=== PATIENT | male | born 1935 | race Caucasian/White ===

== ENCOUNTER 2019-04-19 18:17 | Inpatient (IN) | payer MEDICARE ==
[~2019-04-19] VITALS: Ht 182.9 cm; Wt 93.5 kg
[2019-04-19] MEDS ORDERED: IV RINGERS SOLUTION,LACTATED 1,000 ML IV SCH (18:38)
--- NOTE | 2019-04-19 18:38 | PHYS DOC ---
Past History Past Medical History: Anxiety, Arthritis, Dementia Adult General Chief Complaint Chief Complaint: PSYCH EVALUATION " Wild drive ... over here.. it made me puke..." HPI HPI Patient is a 84 year old male who presents with hx mental status change and behavior issues. Marked changes in mental status the last two weeks. Accepted on [facility], but directed to ED for medical evaluation. Pt. transfer from [facility] - where he has been a resident since 09/05/18. Pt. hx of reporting thoughts of self harm. Pt. reportedly not coping well with placement in .. Pt. reportedly angry, fearful, paranoid, and has threaten other reside nts. Pt. hx of prior CVA and decreased physical ability resulting in his placement in [facility]. Pt. has past history Dementia, CVA., Depression, CHF, , pulmonary disease,, coronary artery disease, peripheral vascular disease, .dysphagia, encephalopathic and HTN. Pt has had, pacemaker and angioplasty in past. Pt did vomit in transport here to ED and was noted to have large bowel movement while in ED. Pt. normally follows with Dr. Snell. Review of Systems Review of Systems Pt. only complaints is nausea and vomiting. - But a poor historian. Constitutional: Denies fever or chills [] Eyes: Denies change in visual acuity, redness, or eye pain [] HENT: Denies nasal congestion or sore throat [] Respiratory: Denies cough or shortness of breath [] Cardiovascular: No additional information not addressed in HPI [] GI: Denies abdominal pain, n, bloody stools . Pt. has complaints of diarrhea []. Pt complaints nausea, vomiting : Denies dysuria or hematuria [] Musculoskeletal: Denies back pain or joint pain [] Integument: Denies rash or skin lesions [] Neurologic: Denies headache, focal weakness or sensory changes [] Endocrine: Denies polyuria or polydipsia [] All other systems were reviewed and found to be within normal limits, except as documented in this note. Family History Family History Not currently available Current Medications Current Medications See nursing for home meds Allergies Allergies No known drug allergies Physical Exam Physical Exam Constitutional: Mild distress, non-toxic appearance. [] HENT: Normocephalic, atraumatic, bilateral external ears normal, oropharynx moist, no oral exudates, nose normal. [] Eyes: PERRLA, EOMI, conjunctiva normal, no discharge. [] Neck: Normal range of motion, no tenderness, supple, no stridor. [] Cardiovascular:Heart rate regular rhythm, no murmur []PMI to the left Lungs & Thorax: Bilateral breath sounds equal apex with scattered wheezes auscultation []. Some left basilar crackles and rhonchi. Pacemaker Abdomen: Bowel sounds hyperactive, soft, no tenderness, no masses, no pulsatile masses. [] Non-circumcised. Foreskin will not retract. Skin: Warm, dry, no erythema, no rash. [] Poor turgor Back: No tenderness, no CVA tenderness. [] Extremities: No tenderness, no cyanosis, no clubbing, ROM intact, no edema. [] Arthritic changes Neurologic: Alert and oriented name and is aware that he is in a hospital,, moves extremities on request, has distal sensory, patient does appear to be confused at times. Does have a mild tremor. Psychologic: Affect anxious, judgement appears impaired, mood depressed EKG EKG My interpretation EKG shows a sinus rhythm at 67 bpm. There is considerable artifact due to a tremor. There is right ordered axis. No findings of acute STEMI of contralateral changes. No obvious patient spikes.[] Radiology/Procedures Radiology/Procedures [][place] [address] IMAGING REPORT Signed PATIENT: DANIELLE CAAL ACCOUNT: [id number] : 1935 LOCATION: ER AGE: 84 SEX: M EXAM STATUS: REG ER ORD. PHYSICIAN: MELBA ALMODOVAR MD REASON: confused PROCEDURE: PORTABLE CHEST 1V CT head without contrast: Reason for examination: Mental status changes and neck pain. Axial images were obtained through the brain. No contrast was administered. Ventricular systems show some asymmetry with the right being larger than the left. This is probably due to compensatory enlargement from encephalomalacia from a previous right frontal lobe infarct at the convexly. No midline shift is seen. There is no evidence of intracranial hemorrhage. There is a chronic lacunar infarct in the right basal ganglia anteriorly. There are basal ganglia calcifications on the right. No masses or edema are evident. No abnormalities of seen at the orbits. The paranasal sinuses and mastoid air cells are clear. No acute abnormality seen in the skull. IMPRESSION: Chronic infarct with encephalomalacia in the right frontal lobe at the convexly with some compensatory enlargement of the right lateral ventricle. Chronic lacunar infarcts in the right basal ganglia region. No intraparenchymal hemorrhage or acute infarct or edema. CT cervical spine without contrast: Helical images were obtained through the cervical spine from skull base through the thoracic apices with no contrast administered. Reconstruction was performed in sagittal and coronal planes. The C1 ring is intact. The odontoid process appears to be intact and normally centered between the lateral masses of C1. The vertebral bodies of the cervical spine are normally aligned anteriorly and posteriorly. No acute fracture or subluxation is seen. There are some hypertrophic changes with a bridging osteophyte anteriorly at the C7-T1 level. There is also osteophyte formation posteriorly at the C5-6 level with mild loss of disc height but there does not appear to be a significant spinal stenosis. No other significant loss of disc height is seen. Prevertebral soft tissues are normal. IMPRESSION: Degenerative spondylosis but no acute abnormalities evident in the cervical spine. Exposure: One or more of the following individualized dose reduction techniques were utilized for this examination: 1. Automated exposure control 2. Adjustment of the mA and/or kV according to patient size 3. Use of iterative reconstruction technique. Chest AP portable at 1924: Postop changes are seen in the sternum and mediastinum. Heart size appears to be enlarged. Mediastinum is otherwise unremarkable considering lordotic projection. Lung matos show some hazy density at the left lung base which suggests some atelectasis or infiltrates. Right lung field is clear. No acute bony abnormalities are seen. IMPRESSION: Hazy density at the left lung base which may reflect atelectasis or infiltrates. Electronically signed by: Sahara Andrew MD (04/19/2019 8:22 PM) [id number] DICTATED AND SIGNED BY: SAHARA ANDREW MD DATE: 04/19/192021 CC: MELBA ALMODOVAR MD; JENNIFER SNELL MD ~ Course & Med Decision Making Course & Med Decision Making Pertinent Labs and Imaging studies reviewed. (See chart for details) Admit to Dr. Chase with consult to Dr. Venegas- medical issues. Note unable to obtain urine while in the emergency department. We will cover with antibiotics because of left lower possible infiltrate and mild leukocytosis. Impression: 1. Hx. Mental Status Change 2. Dementia 3. Nausea and vomiting 4. Behavior Disorder- requiring increased re-direction, Angry 5. Diarrhea 6. Left lower lobe infiltrate 7. Mild leukocytosis 12.7 8. Anxiety 9. Depression- Hx. threats of self harm 10.Paranoid Behaviors. 11.Mild Elevation Sed. 22 [] Dragon Disclaimer Dragon Disclaimer This electronic medical record was generated, in whole or in part, using a voice recognition dictation system. Departure Departure: Disposition: HOME/RESIDENCE PRIOR TO ADM Condition: STABLE Referrals: JENNIFER SNELL MD (PCP) Leonardo Disclaimer This chart was dictated in whole or in part using Voice Recognition software in a busy, high-work load, and often noisy Emergency Department environment. It may contain unintended and wholly unrecognized errors or omissions. Dragon Disclaimer This chart was dictated in whole or in part using Voice Recognition software in a busy, high-work load, and often noisy Emergency Department environment. It may contain unintended and wholly unrecognized errors or omissions. Dragon Disclaimer This chart was dictated in whole or in part using Voice Recognition software in a busy, high-work load, and often noisy Emergency Department environment. It may contain unintended and wholly unrecognized errors or omissions. MELBA ALMODOVAR MD Apr 19, 2019 18:38
--- NOTE | 2019-04-19 20:25 | RAD ---
CT head without contrast: Reason for examination: Mental status changes and neck pain. Axial images were obtained through the brain. No contrast was administered. Ventricular systems show some asymmetry with the right being larger than the left. This is probably due to compensatory enlargement from encephalomalacia from a previous right frontal lobe infarct at the convexly. No midline shift is seen. There is no evidence of intracranial hemorrhage. There is a chronic lacunar infarct in the right basal ganglia anteriorly. There are basal ganglia calcifications on the right. No masses or edema are evident. No abnormalities of seen at the orbits. The paranasal sinuses and mastoid air cells are clear. No acute abnormality seen in the skull. IMPRESSION: Chronic infarct with encephalomalacia in the right frontal lobe at the convexly with some compensatory enlargement of the right lateral ventricle. Chronic lacunar infarcts in the right basal ganglia region. No intraparenchymal hemorrhage or acute infarct or edema. CT cervical spine without contrast: Helical images were obtained through the cervical spine from skull base through the thoracic apices with no contrast administered. Reconstruction was performed in sagittal and coronal planes. The C1 ring is intact. The odontoid process appears to be intact and normally centered between the lateral masses of C1. The vertebral bodies of the cervical spine are normally aligned anteriorly and posteriorly. No acute fracture or subluxation is seen. There are some hypertrophic changes with a bridging osteophyte anteriorly at the C7-T1 level. There is also osteophyte formation posteriorly at the C5-6 level with mild loss of disc height but there does not appear to be a significant spinal stenosis. No other significant loss of disc height is seen. Prevertebral soft tissues are normal. IMPRESSION: Degenerative spondylosis but no acute abnormalities evident in the cervical spine. Exposure: One or more of the following individualized dose reduction techniques were utilized for this examination: 1. Automated exposure control 2. Adjustment of the mA and/or kV according to patient size 3. Use of iterative reconstruction technique. Chest AP portable at 1924: Postop changes are seen in the sternum and mediastinum. Heart size appears to be enlarged. Mediastinum is otherwise unremarkable considering lordotic projection. Lung matos show some hazy density at the left lung base which suggests some atelectasis or infiltrates. Right lung field is clear. No acute bony abnormalities are seen. IMPRESSION: Hazy density at the left lung base which may reflect atelectasis or infiltrates. Electronically signed by: Alana Lutz MD (04/19/2019 8:22 PM) [facility]
[2019-04-19] MEDS ORDERED: LIDOCAINE 2% TOPICAL JELLY 5GM TUBE. TP ONE ×2 (20:27→22:00)
[2019-04-19] MEDS ORDERED: TAMS0.4C97 PO (20:44)
[2019-04-19] MEDS ORDERED: MULT-114 PO (20:44)
[2019-04-19] MEDS ORDERED: ACET325T21 PO (20:44)
[2019-04-19] MEDS ORDERED: MAGN2400 PO (20:44)
[2019-04-19] MEDS ORDERED: TRIA15CR3 TP (20:44)
[2019-04-19] MEDS ORDERED: SERT50TA PO (20:44)
[2019-04-19] MEDS ORDERED: GUAI100L34 PO (20:44)
[2019-04-19] MEDS ORDERED: MAGN296S68 PO (20:44)
[2019-04-19] MEDS ORDERED: LOPE2TAB27 PO (20:44)
[2019-04-19] MEDS ORDERED: PSYL0.5215 PO (20:44)
[2019-04-19] MEDS ORDERED: SIME125C65 PO (20:44)
[2019-04-19] MEDS ORDERED: ATOR40TA59 PO (20:44)
[2019-04-19] MEDS ORDERED: BACL10TA PO (20:44)
[2019-04-19] MEDS ORDERED: ASPI-612 PO (20:44)
[2019-04-19] MEDS ORDERED: METRONIDAZOLE TOP (20:44)
[2019-04-19] MEDS ORDERED: FINA5TAB4 PO (20:44)
[2019-04-19] MEDS ORDERED: BISA10SU4 RC (20:44)
[2019-04-19] MEDS ORDERED: ONDANSETRON PF 4 MG/2 ML VIAL. IVP ONE (21:00)
[2019-04-19 21:09] LABS: CALCIUM 8.8 mg/dL (8.5-10.1); CREATININE 0.8 mg/dL (0.7-1.3); GFR 92.3
[2019-04-19 21:25] LABS: ALBUMIN 3.6 g/dL (3.4-5.0); DIRECT BILIRUBIN 0.1 mg/dL (0.0-0.2); MAGNESIUM 2.2 mg/dL (1.8-2.4); TOTAL BILIRUBIN 0.3 mg/dL (0.2-1.0); TOTAL PROTEIN 7.7 g/dL (6.4-8.2)
[2019-04-19 21:29] LABS: POTASSIUM 3.7 mmol/L (3.5-5.1)
[2019-04-19] MEDS ORDERED: ACETAMINOPHEN 325 MG TABLET PO PRN (21:45)
[2019-04-19] MEDS ORDERED: ONDANSETRON ODT 4 MG TAB.RAPDIS PO PRN (21:45)
[2019-04-19 21:56] LABS: BASO % 0 % (0-3); EOS # 0.1 x10^3/uL (0.0-0.7); EOS % 1 % (0-3); HEMATOCRIT 40.5 % (39.0-53.0); HEMOGLOBIN 13.2 g/dL (13.0-17.5); LYMPH # 0.9 x10^3/uL (1.0-4.8); LYMPH % 7 % (24-48); MEAN CORPUSCULAR HEMOGLOBIN 30 pg (25-35); MEAN CORPUSCULAR HGB CONC 33 g/dL (31-37); MEAN CORPUSCULAR VOLUME 91 fL (79-100); MONO # 0.5 x10^3/uL (0.0-1.1); MONO % 4 % (0-9); NEUT # 11.2 x10^3uL (1.8-7.7); NEUT % 89 % (31-73); PLATELET COUNT 259 x10^3/uL (140-400); RED BLOOD COUNT 4.45 x10^6/uL (4.30-5.70); RED CELL DISTRIBUTION WIDTH 15.9 % (11.5-14.5); WHITE BLOOD COUNT 12.7 x10^3/uL (4.0-11.0)
[2019-04-19 22:14] LABS: SEDIMENTATION RATE 22 (0-15)
[2019-04-20] MEDS ORDERED: METHYL SALICYLATE/MENTHOL TOPICAL OINTMENT 57GM TUBE. TP PRN (00:30)
[2019-04-20] MEDS ORDERED: MAGNESIUM HYDROXIDE 2,400 MG/30 ML ORAL.SUSP. PO PRN (00:30)
[2019-04-20] MEDS ORDERED: MAG HYDROX/AL HYDROX/SIMETH 30 ML ORAL.SUSP PO PRN (00:30)
[2019-04-20] MEDS ORDERED: ACETAMINOPHEN 325 MG TABLET PO PRN ×2 (00:30→00:45)
[2019-04-20] MEDS ORDERED: BISACODYL 10 MG SUPP.RECT RC PRN (00:45)
[2019-04-20] MEDS ORDERED: guaiFENesin 300 MG/15 ML LIQUID PO PRN (00:45)
[2019-04-20] MEDS ORDERED: TRIAMCINOLONE ACETONIDE 0.1% TOPICAL CREAM 15GM TUBE. TP PRN ×2 (00:45→17:30)
[2019-04-20] MEDS ORDERED: MAGNESIUM CITRATE 296 ML SOLUTION. PO PRN (00:45)
[2019-04-20] MEDS ORDERED: NON FORMULARY ITEM (Magnesium Hydroxide (Milk Of Magnesia) 2,400 MG) PO PRN (00:45)
[2019-04-20] MEDS ORDERED: LOPERAMIDE 2 MG CAPSULE PO PRN (00:45)
[2019-04-20] MEDS ORDERED: SIMETHICONE 80 MG TAB.CHEW PO PRN (00:45)
--- NOTE | 2019-04-20 01:13 | EKG ---
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
[2019-04-20 01:16] VITALS: BP 142/75
[2019-04-20] MEDS ORDERED: cefTRIAXone IM 1 GM VIAL IM ONE (04:00)
[2019-04-20 04:49] VITALS: BP 119/63
[2019-04-20] MEDS: IPRATRPIUM/ALBUTEROL 0.5/2.5MG 3 ML NEBU. NEB SCH ×3 (04:50→20:42)
[2019-04-20] MEDS ORDERED: metroNIDAZOLE 0.75% TOPICAL 1 APP TUBE TP PRN (07:30)
[2019-04-20 08:38] LABS: BASO % 0 % (0-3); EOS # 0.1 x10^3/uL (0.0-0.7); EOS % 2 % (0-3); HEMATOCRIT 37.6 % (39.0-53.0); HEMOGLOBIN 12.6 g/dL (13.0-17.5); LYMPH # 1.5 x10^3/uL (1.0-4.8); LYMPH % 18 % (24-48); MEAN CORPUSCULAR HEMOGLOBIN 30 pg (25-35); MEAN CORPUSCULAR HGB CONC 33 g/dL (31-37); MEAN CORPUSCULAR VOLUME 90 fL (79-100); MONO # 0.4 x10^3/uL (0.0-1.1); MONO % 5 % (0-9); NEUT # 6.4 x10^3uL (1.8-7.7); NEUT % 75 % (31-73); PLATELET COUNT 252 x10^3/uL (140-400); RED BLOOD COUNT 4.17 x10^6/uL (4.30-5.70); RED CELL DISTRIBUTION WIDTH 15.9 % (11.5-14.5); WHITE BLOOD COUNT 8.4 x10^3/uL (4.0-11.0)
[2019-04-20 08:48] LABS: ALBUMIN 3.3 g/dL (3.4-5.0); ALBUMIN/GLOBULIN RATIO 0.9 (1.0-1.7); CALCIUM 8.6 mg/dL (8.5-10.1); CREATININE 0.7 mg/dL (0.7-1.3); GFR 107.7; MAGNESIUM 2.3 mg/dL (1.8-2.4); POTASSIUM 3.4 mmol/L (3.5-5.1); TOTAL BILIRUBIN 0.5 mg/dL (0.2-1.0); TOTAL PROTEIN 6.9 g/dL (6.4-8.2)
[2019-04-20] MEDS: LACTOBACILLUS RHAMNOSUS GG 1 CAPSULE. PO SCH ×2 (08:59→20:12)
[2019-04-20] MEDS: CEPHALEXIN 250 MG CAPSULE PO SCH ×3 (09:00→20:12)
[2019-04-20] MEDS: TAMSULOSIN 0.4 MG CAP.ER.24H. PO SCH (09:00)
[2019-04-20] MEDS: BACLOFEN 10 MG TABLET PO SCH ×2 (09:00→20:12)
[2019-04-20] MEDS: MULTIVITAMIN with MINERAL TABLET. PO SCH (09:00)
[2019-04-20] MEDS: SERTRALINE 50 MG TABLET. PO SCH (09:00)
[2019-04-20] MEDS: ASPIRIN ENTERIC COATED 81 MG TABLET.DR. PO SCH (09:00)
[2019-04-20] MEDS: FINASTERIDE 5 MG TABLET PO SCH (09:00)
[2019-04-20] MEDS: PSYLLIUM SEED (WITH SUGAR) PACKET. PO SCH (09:00)
[2019-04-20 11:08] LABS: THYROXINE 6.2 ug/dL (4.5-12.0)
[2019-04-20 13:41] LABS: % BANDS 4 % (0-9); % EOS 3 % (0-5); % LYMPHS 15 % (24-48); % MONOS 5 % (0-10); % SEGS 73 % (35-66)
[2019-04-20 13:45] LABS: OVALOCYTES FEW; PLT ESTIMATE ADEQUATE (ADEQUATE)
[2019-04-20 16:30] VITALS: BP 146/82
[2019-04-20] MEDS: ATORVASTATIN CALCIUM 20 MG TABLET PO SCH (20:12)
--- NOTE | 2019-04-20 21:17 | PDOC ---
Exam Note: Andreas Note: Please also refer to the separate dictated note~for this date of service dictated separately. Discussed the patient with Nursing staff reviewed the chart.~Reviewed interim history and current functioning. Reviewed vital signs,~Labs/ Radiology~and current medications noted below. Continue current treatment with the changes noted in the dictated addendum note Assessment: Vital Signs/I&O: Vital Signs Date Time Temp Pulse Resp B/P (MAP) Pulse Ox O2 Delivery O2 Flow Rate FiO2 04/20/19 20:43 95 Room Air 04/20/19 16:30 97.6 72 18 146/82 (103) I & O 04/19/19 04/19/19 04/20/19 15:00 23:00 07:00 Intake Total 440 ml Balance 440 ml Labs: Laboratory Tests Test 04/20/19 07:34 White Blood Count 8.4 x10^3/uL (4.0-11.0) Red Blood Count 4.17 x10^6/uL (4.30-5.70) L Hemoglobin 12.6 g/dL (13.0-17.5) L Hematocrit 37.6 % (39.0-53.0) L Mean Corpuscular Volume 90 fL (79-100) Mean Corpuscular Hemoglobin 30 pg (25-35) Mean Corpuscular Hemoglobin Concent 33 g/dL (31-37) Red Cell Distribution Width 15.9 % (11.5-14.5) H Platelet Count 252 x10^3/uL (140-400) Neutrophils (%) (Auto) 75 % (31-73) H Lymphocytes (%) (Auto) 18 % (24-48) L Monocytes (%) (Auto) 5 % (0-9) Eosinophils (%) (Auto) 2 % (0-3) Basophils (%) (Auto) 0 % (0-3) Neutrophils # (Auto) 6.4 x10^3uL (1.8-7.7) Lymphocytes # (Auto) 1.5 x10^3/uL (1.0-4.8) Monocytes # (Auto) 0.4 x10^3/uL (0.0-1.1) Eosinophils # (Auto) 0.1 x10^3/uL (0.0-0.7) Basophils # (Auto) 0.0 x10^3/uL (0.0-0.2) Segmented Neutrophils % 73 % (35-66) H Band Neutrophils % 4 % (0-9) Lymphocytes % 15 % (24-48) L Monocytes % 5 % (0-10) Eosinophils % 3 % (0-5) Platelet Estimate Adequate (ADEQUATE) Large Platelets Present Ovalocytes Few Sodium Level 144 mmol/L (136-145) Potassium Level 3.4 mmol/L (3.5-5.1) L Chloride Level 108 mmol/L (98-107) H Carbon Dioxide Level 27 mmol/L (21-32) Anion Gap 9 (6-14) Blood Urea Nitrogen 24 mg/dL (8-26) Creatinine 0.7 mg/dL (0.7-1.3) Estimated GFR (Cockcroft-Gault) 107.7 BUN/Creatinine Ratio 34 (6-20) H Glucose Level 93 mg/dL (70-99) Calcium Level 8.6 mg/dL (8.5-10.1) Magnesium Level 2.3 mg/dL (1.8-2.4) Iron Level 67 ug/dL (65-175) Total Iron Binding Capacity 221 ug/dL (250-450) L Iron Saturation 30 % (15-34) Total Bilirubin 0.5 mg/dL (0.2-1.0) Aspartate Amino Transferase (AST) 16 U/L (15-37) Alanine Aminotransferase (ALT) 19 U/L (16-63) Alkaline Phosphatase 77 U/L (46-116) Ammonia 18 mcmol/L (11-34) Total Protein 6.9 g/dL (6.4-8.2) Albumin 3.3 g/dL (3.4-5.0) L Albumin/Globulin Ratio 0.9 (1.0-1.7) L Triglycerides Level 85 mg/dL (0-150) Cholesterol Level 98 mg/dL (0-200) LDL Cholesterol, Calculated 49 mg/dL (0-100) VLDL Cholesterol, Calculated 17 mg/dL (0-40) Non-HDL Cholesterol Calculated 66 mg/dL (0-129) HDL Cholesterol 32 mg/dL (40-60) L Cholesterol/HDL Ratio 3.0 Thyroxine (T4) 6.2 ug/dL (4.5-12.0) Total Triiodothyronine (TT3) 78 ng/dL (71-180) Current Medications: Meds: Current Medications Medications (Trade) Dose Ordered Sig/Dinorah Route PRN Reason Start Time Stop Time Status Last Admin Dose Admin Albuterol/ Ipratropium (Duoneb) 3 ml RTQID NEB 04/20/19 08:00 04/21/19 07:59 04/20/19 20:42 Lidocaine HCl (Xylocaine 2% Topical 5gm Tube) 1 eulogio 1X ONCE TP 04/19/19 22:00 04/19/19 22:02 DC 04/19/19 22:00 Aspirin (Aspirin Enteric Coated) 81 mg DAILY PO 04/20/19 09:00 04/20/19 09:00 Baclofen (Lioresal) 10 mg BID PO 04/20/19 09:00 04/20/19 20:12 Finasteride (Proscar) 5 mg DAILY PO 04/20/19 09:00 04/20/19 09:00 Tamsulosin HCl (Flomax) 0.4 mg DAILY PO 04/20/19 09:00 04/20/19 09:00 Atorvastatin Calcium (Lipitor) 40 mg QHS PO 04/20/19 21:00 04/20/19 20:12 Multivitamins/ Calcium (Thera-M Plus) 1 tab DAILY PO 04/20/19 09:00 04/20/19 09:00 Psyllium Hydrophilic Mucilloid (Metamucil) 1 pkt DAILY PO 04/20/19 09:00 04/20/19 09:00 Sertraline HCl (Zoloft) 50 mg DAILY PO 04/20/19 09:00 04/20/19 09:00 Cephalexin HCl (Keflex) 500 mg TID PO 04/20/19 09:00 04/20/19 20:12 Lactobacillus Rhamnosus (Culturelle) 1 cap BID PO 04/20/19 09:00 04/20/19 20:12 I have reviewed the current psychotropics carefully including drug interactions. Risk benefit ratio favors no change other than as noted in my dictated progress note. Diagnosis: Problems: (1) Mental and behavioral problem in adult (2) Anxiety disorder (3) Dementia in Alzheimer's disease with delusions (4) Dementia in Alzheimer's disease with depression (5) Dementia, vascular, with delusions (6) Dementia, vascular, with depression (7) Impulse control disorder ZION JHA MD Apr 20, 2019 21:17
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
[2019-04-21 02:06] LABS: HEMOGLOBIN A1C 5.5 % (4.8-5.6)
--- NOTE | 2019-04-21 04:46 | CONS ---
DATE OF CONSULTATION: 04/20/2019 REASON FOR CONSULTATION: Medical management. HISTORY OF PRESENT ILLNESS: The patient is an 84-year-old male patient, a resident at [facility], who was admitted on account of threatening to harm himself, another resident with scissors, becoming annoyed, angry very fast, all this in a background of major depressive disorder. 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 PAST SURGICAL HISTORY: Significant for aortocoronary bypass surgery, pacemaker placement and cholecystectomy. ALLERGIES: He has no known drug allergies. MEDICATIONS: He is currently on following medications: He is on tamsulosin for Flomax 0.4 mg at bedtime, baclofen 10 mg twice a day, atorvastatin calcium 40 mg at bedtime, aspirin 81 mg once a day, Tylenol 650 mg every 4 hours, sertraline 50 mg daily, guaifenesin 100 mg per 5 mL, he takes 10 mL every 6 hours, loperamide 2 mg every 2 hours as needed for diarrhea, simethicone 125 mg after meals as needed, bisacodyl 10 mg suppository rectally daily as needed, magnesium citrate 1 bottle daily as needed, Milk of Magnesia 30 mL p.o. daily p.r.n. for constipation, psyllium husk for Metamucil 1 cup p.o. daily, triamcinolone acetonide cream applied topically twice a day, multivitamin with mineral 1 tablet once a day, finasteride 5 mg once a day, Flagyl lotion applied topically daily p.r.n. FAMILY HISTORY: Noncontributory. SOCIAL HISTORY: He is , has 2 sons and 1 daughter. He has never smoked, does not drink alcohol. 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 PHYSICAL EXAMINATION: GENERAL: When I saw him this afternoon, he was resting slightly propped up in bed, in no apparent respiratory distress. No pallor, jaundice, cyanosis or thyromegaly. No jugular venous distention. No limb edema. VITAL SIGNS: His heart rate was 72, blood pressure 146/82, temperature 97.6, respiratory rate was 18 and oxygen saturation was 95% on room air. HEAD, EYES, EARS, NOSE AND THROAT: Showed normocephalic, atraumatic. NECK: Supple. CARDIAC: Normal first and second heart sounds. No gallop or murmur. CHEST: Clear to auscultation. No crepitation or rhonchi. ABDOMEN: Distended, soft, nontender. NEUROLOGIC: He is awake, alert, responding appropriately. All his cranial nerves are intact. He has definitely a left-sided hemiplegia, fixed flexed contraction of both upper and left lower extremity. LABORATORY DATA: Showed a white cell count of 8400, hemoglobin 12.6, hematocrit 37, MCV 90 and platelet count 252,000. His chemistry showed a serum sodium 144, potassium 3.4, chloride 108, bicarbonate 27, anion gap of 9, BUN 24, creatinine 0.7, estimated GFR was 170 mL per minute, his glucose was 93, calcium was 8.6, magnesium was 2.3. Serum iron, TIBC and iron saturation are all low. Total bilirubin, AST, ALT, alkaline phosphatase were normal. Ammonia is 18. Total protein 6.9, albumin was 3.3. His TSH slightly elevated; however, total T4 and total T3 are normal. His triglycerides 55, total cholesterol 98. LDL was 49, VLDL 17, HDL was 51 and the ratio was 3. His prothrombin time, INR and aPTT are all normal. DIAGNOSTICS: CT scan showed chronic infarct, encephalomalacia in the right frontal lobe at the convexity, some compensatory enlargement of the right lateral ventricle, chronic lacunar infarcts in the right ganglia region. No intraparenchymal hemorrhage or acute infarct. The cervical spine showed degenerative spondylosis with no acute abnormality evident in the cervical spine. His chest x-ray showed that there is hazy density in the left lung base, which may reflect atelectasis or infiltrate. IMPRESSION: In summary, this is an 84-year-old male patient, who was a resident at [facility], who was admitted on account of threatening to harm himself and another resident with scissors, becoming annoyed and angry very fast, all this in a background of major depressive disorder. He has multiple medical problems; however, so far he seems to be generally medically stable. I will obviously follow all his lab works that are still pending and make any necessary recommendation. Thank you, Dr. Chase for allowing me to participate in the care of this patient. EVELIO CAMPA MD DR: HARJEET/leslie JOB#: [id number] / [id number]
[2019-04-21 04:52] VITALS: BP 153/78
[2019-04-21] MEDS: IPRATRPIUM/ALBUTEROL 0.5/2.5MG 3 ML NEBU. NEB SCH (05:22)
[2019-04-21] MEDS: BACLOFEN 10 MG TABLET PO SCH ×2 (10:22→20:06)
[2019-04-21] MEDS: PSYLLIUM SEED (WITH SUGAR) PACKET. PO SCH (10:22)
[2019-04-21] MEDS: SERTRALINE 50 MG TABLET. PO SCH (10:22)
[2019-04-21] MEDS: ASPIRIN ENTERIC COATED 81 MG TABLET.DR. PO SCH (10:22)
[2019-04-21] MEDS: TAMSULOSIN 0.4 MG CAP.ER.24H. PO SCH (10:23)
[2019-04-21] MEDS: CEPHALEXIN 250 MG CAPSULE PO SCH ×3 (10:23→20:07)
[2019-04-21] MEDS: LACTOBACILLUS RHAMNOSUS GG 1 CAPSULE. PO SCH ×2 (10:23→20:06)
[2019-04-21] MEDS: MULTIVITAMIN with MINERAL TABLET. PO SCH (10:23)
[2019-04-21] MEDS: FINASTERIDE 5 MG TABLET PO SCH (10:23)
[2019-04-21] MEDS ORDERED: LIDOCAINE 2% JELLY 10ML IN APPLICATOR. MM ONE (14:30)
[2019-04-21 15:44] VITALS: BP 154/83
[2019-04-21 16:49] LABS: BACTERIA,URINE 0 /HPF (0-FEW); BILIRUBIN,URINE NEG (NEG); CLARITY,URINE HAZY; COLOR,URINE YELLOW; GLUCOSE,URINE NEG (NEG); NITRITE,URINE NEG (NEG); SQUAMOUS EPITHELIAL CELL,UR OCC /LPF; UROBILINOGEN,URINE 0.2 mg/dL (0.2 mg/dL); WBC,URINE OCC /HPF (0-4)
[2019-04-21] MEDS: ATORVASTATIN CALCIUM 20 MG TABLET PO SCH (20:07)
--- NOTE | 2019-04-21 20:38 | PDOC ---
Exam Note: Andreas Note: Please also refer to the separate dictated note~for this date of service dictated separately.~Patient seen individually. Discussed the patient with Nursing staff reviewed the chart.~Reviewed interim history and current functioning. Reviewed vital signs,~Labs/ Radiology~and current medications noted below. Continue current treatment with the changes noted in the dictated addendum note Assessment: Vital Signs/I&O: Vital Signs Date Time Temp Pulse Resp B/P (MAP) Pulse Ox O2 Delivery O2 Flow Rate FiO2 04/21/19 15:44 98.2 72 16 154/83 (106) 93 04/21/19 05:23 Room Air I & O 04/20/19 04/20/19 04/21/19 15:00 23:00 07:00 Intake Total 240 ml 640 ml Balance 240 ml 640 ml Labs: Laboratory Tests Test 04/21/19 15:30 Urine Collection Type U cath Urine Color Yellow Urine Clarity Hazy Urine pH 5.5 Urine Specific [place] >=1.030 Urine Protein Neg (NEG-TRACE) Urine Glucose (UA) Neg mg/dL (NEG) Urine Ketones (Stick) Neg mg/dL (NEG) Urine Blood Small (NEG) Urine Nitrite Neg (NEG) Urine Bilirubin Neg (NEG) Urine Urobilinogen Dipstick 0.2 mg/dL (0.2 mg/dL) Urine Leukocyte Esterase Neg (NEG) Urine RBC 1-2 /HPF (0-2) Urine WBC Occ /HPF (0-4) Urine Squamous Epithelial Cells Occ /LPF Urine Bacteria 0 /HPF (0-FEW) Urine Mucus Mod /LPF Current Medications: Meds: Current Medications Medications (Trade) Dose Ordered Sig/Dinorah Route PRN Reason Start Time Stop Time Status Last Admin Dose Admin Atorvastatin Calcium (Lipitor) 40 mg QHS PO 04/20/19 21:00 04/21/19 20:07 I have reviewed the current psychotropics carefully including drug interactions. Risk benefit ratio favors no change other than as noted in my dictated progress note. Diagnosis: Problems: (1) Mental and behavioral problem in adult (2) Anxiety disorder (3) Dementia in Alzheimer's disease with delusions (4) Dementia in Alzheimer's disease with depression (5) Dementia, vascular, with delusions (6) Dementia, vascular, with depression (7) Impulse control disorder ZION JHA MD Apr 21, 2019 20:38
[2019-04-22 05:50] VITALS: BP 134/76
[2019-04-22] MEDS: PSYLLIUM SEED (WITH SUGAR) PACKET. PO SCH (08:42)
[2019-04-22] MEDS: BACLOFEN 10 MG TABLET PO SCH ×2 (08:43→20:16)
[2019-04-22] MEDS: LACTOBACILLUS RHAMNOSUS GG 1 CAPSULE. PO SCH ×2 (08:43→20:16)
[2019-04-22] MEDS: FINASTERIDE 5 MG TABLET PO SCH (08:43)
[2019-04-22] MEDS: ASPIRIN ENTERIC COATED 81 MG TABLET.DR. PO SCH (08:43)
[2019-04-22] MEDS: MULTIVITAMIN with MINERAL TABLET. PO SCH (08:43)
[2019-04-22] MEDS: CEPHALEXIN 250 MG CAPSULE PO SCH ×3 (08:44→20:16)
[2019-04-22] MEDS: TAMSULOSIN 0.4 MG CAP.ER.24H. PO SCH (08:44)
[2019-04-22] MEDS: SERTRALINE 50 MG TABLET. PO SCH (08:44)
--- NOTE | 2019-04-22 10:52 | PN ---
DATE: 04/21/2019 PSYCHIATRIC PROGRESS NOTE This late entry 04/21/2019 covers the elements not covered in my initial note. SUBJECTIVE: I met with the patient in the evening. Per nursing report, the patient slept 8-1/4 hours. He has been angry, somewhat irritable, labile, resents being on the [facility] with some of the other patients being demented. He was quite anxious, labile, irritable as he addressed this with me in the evening, wanted to be taken to a private area to be able to talk, which I did. He wants to be discharged and I passed a message on to CARLO Frazier to pass on to Social Service staff to address this. The patient is cognitively well intact. Resents being with other demented patients, feel scared threatened by them, though nursing staff have not noticed any specific threats towards him. I let the family and Social Service staff decide together with the patient on either transitioning back to [facility] or an alternative facility where the patient may be more comfortable. REVIEW OF SYSTEMS: Ambulation impaired. No CV, , pulmonary, eye system symptoms on review. MENTAL STATUS EXAM: Reasonably oriented. Speech coherent, abstraction fair, computation somewhat impaired, language function intact, attention span short. Mood and affect appears depressed, anxious, irritable at times, somewhat suspicious. No suicidal or homicidal ideation. LABORATORY DATA: Reviewed. IMPRESSION: Major depressive disorder, recurrent; anxiety disorder, unspecified; impulse control disorder. Rest unchanged from initial note. PLAN: Increase Zoloft to 75 mg a day. Start Zyprexa 2.5 mg q.2 hours p.r.n. psychosis, agitation, max 7.5 mg in 24 hours. Rest unchanged. Defer rest to Social Service staff, nursing staff as above. MAN Adela JHA MD DR: MORALES/leslie JOB#: [id number] / [id number]
[2019-04-22 15:47] VITALS: BP 185/98
[2019-04-22] MEDS: ATORVASTATIN CALCIUM 20 MG TABLET PO SCH (20:16)
--- NOTE | 2019-04-22 20:42 | PDOC ---
Exam Note: Andreas Note: Please also refer to the separate dictated note~for this date of service dictated separately.~Patient seen individually. Discussed the patient with Nursing staff reviewed the chart.~Reviewed interim history and current functioning. Reviewed vital signs,~Labs/ Radiology~and current medications noted below. Continue current treatment with the changes noted in the dictated addendum note Assessment: Vital Signs/I&O: Vital Signs Date Time Temp Pulse Resp B/P (MAP) Pulse Ox O2 Delivery O2 Flow Rate FiO2 04/22/19 15:47 97.0 77 16 185/98 (127) 97 04/21/19 05:23 Room Air I & O 04/21/19 04/21/19 04/22/19 14:59 22:59 06:59 Intake Total 240 ml 600 ml Output Total 850 ml Balance 240 ml 600 ml -850 ml Current Medications: Meds: Current Medications Medications (Trade) Dose Ordered Sig/Dinorah Route PRN Reason Start Time Stop Time Status Last Admin Dose Admin Olanzapine (ZyPREXA ZYDIS) 2.5 mg PRN Q2HR PRN PO PSYCHOSIS 04/21/19 21:00 04/21/19 21:21 Sertraline HCl (Zoloft) 75 mg DAILY PO 04/22/19 09:00 04/22/19 08:44 I have reviewed the current psychotropics carefully including drug interactions. Risk benefit ratio favors no change other than as noted in my dictated progress note. Diagnosis: Problems: (1) Mental and behavioral problem in adult (2) Anxiety disorder (3) Dementia in Alzheimer's disease with delusions (4) Dementia in Alzheimer's disease with depression (5) Dementia, vascular, with delusions (6) Dementia, vascular, with depression (7) Impulse control disorder ZION JHA MD Apr 22, 2019 20:42
[2019-04-23] MEDS ORDERED: CEPH500C PO (00:10)
[2019-04-23] MEDS ORDERED: LACT1CAP21 PO (00:11)
[2019-04-23] MEDS ORDERED: MAG-95 PO (00:11)
[2019-04-23] MEDS ORDERED: OLAN5TAB5 PO (00:13)
[2019-04-23] MEDS ORDERED: METH28OI2 TP (00:13)
[2019-04-23] MEDS ORDERED: ONDA8TAB9 PO (00:14)
[2019-04-23 05:39] VITALS: BP 143/77
[2019-04-23] MEDS: FINASTERIDE 5 MG TABLET PO SCH (08:53)
[2019-04-23] MEDS: CEPHALEXIN 250 MG CAPSULE PO SCH ×2 (08:54→12:50)
[2019-04-23] MEDS: ASPIRIN ENTERIC COATED 81 MG TABLET.DR. PO SCH (08:54)
[2019-04-23] MEDS: LACTOBACILLUS RHAMNOSUS GG 1 CAPSULE. PO SCH (08:55)
[2019-04-23] MEDS: MULTIVITAMIN with MINERAL TABLET. PO SCH (08:55)
[2019-04-23] MEDS: BACLOFEN 10 MG TABLET PO SCH (08:55)
[2019-04-23] MEDS: TAMSULOSIN 0.4 MG CAP.ER.24H. PO SCH (08:56)
[2019-04-23] MEDS: PSYLLIUM SEED (WITH SUGAR) PACKET. PO SCH (08:56)
[2019-04-23] MEDS: SERTRALINE 50 MG TABLET. PO SCH (08:57)
--- NOTE | 2019-04-23 13:43 | PN ---
DATE: 04/23/2019 PSYCHIATRIC PROGRESS NOTE This note covers elements not covered in my initial note. REASON FOR ADMISSION: Please refer to the admission history for details. Briefly, the patient is an 84-year-old male referred to us from [facility] by his primary care physician on account of threatening to harm himself and another resident with scissors. He became annoyed, angry, states the others were bullying him and he did not know how to react. He appeared depressed, angry, irritable, had failed outpatient psychiatric interventions resulting in this referral. SIGNIFICANT FINDINGS AND CLINICAL COURSE: Following admission, the patient was seen daily individually by myself from a psychiatric standpoint, medical followup with Dr. Venegas. Shortly after admission, the patient was quite angry, irritable that he was on a unit with other demented patients, wanting to be discharged, angry that we will not let him out of the unit right away, even though it was late at night. Insight seemed limited, but ultimately he seemed to understand how this was not possible. I did discuss with nursing staff and social service staff and others to have the family involved make a decision on his disposition since he was just not wanting to be here. He denied active suicidal or homicidal ideation. [facility] Social Service staff arrange for discharge on 04/23/2019 prior to discharge. REVIEW OF SYSTEMS: Ambulation impaired. No CV, , pulmonary, eye system symptoms on review. MENTAL STATUS EXAM: Reasonably oriented. Speech coherent, abstraction fair, computation impaired, language function intact. Mood and affect are still depressed, anxious, but no suicidal or homicidal ideation. CONDITION AT DISCHARGE: Slightly improved, but he had not been here long enough to undergo full treatment. He was a self-sign and we agreed to transition him to a lower level of care. FINAL DIAGNOSES: Major depressive disorder, recurrent; anxiety disorder, unspecified; impulse control disorder, unspecified. Rest unchanged from admission. DISCHARGE MEDICATIONS: Please refer to the MRAD. DISCHARGE INSTRUCTIONS: Outpatient psychiatric and medical followup at the [facility]. MAN Adela JHA MD DR: MORALES/leslie JOB#: [id number] / [id number]
--- NOTE | 2019-04-23 19:54 | PN ---
DATE: 04/22/2019 PSYCHIATRIC PROGRESS NOTE This late entry 04/22/2019 covers the elements not covered in my initial note. SUBJECTIVE: I met with the patient at some length in his room in the evening of 04/22/2019. Discussed with [facility] social service staff, nursing staff on 2 or 3 occasions as the patient still wanting to be discharged prematurely back to [facility]. [facility] has coordinated with the patient's daughter and ultimately after much back and forth, discharge to outpatient treatment has been planned for 04/23/2019. Per CARLO Dey, the patient slept 6 hours previous night, remains anxious, angry that he is not being discharged right away and I processed this with him. REVIEW OF SYSTEMS: Ambulation impaired, in __. No CV, , pulmonary, eye system symptoms on review. MENTAL STATUS EXAM: Reasonably oriented. Speech is coherent, rapid at times, angry. Abstraction fair, computation impaired. Denies suicidal ideation. LABORATORY DATA: Reviewed. IMPRESSION: Major depressive disorder, recurrent; anxiety disorder, unspecified; impulse control disorder, unspecified. PLAN: Zoloft has been increased to 75 mg daily, Zyprexa remains p.r.n. Rest unchanged for now. Possible discharge on 04/23/2019. ZION JHA MD DR: MORALES/leslie JOB#: [id number] / [id number]
--- NOTE | 2019-04-23 20:56 | PDOC ---
Exam Note: Andreas Note: Please also refer to the separate dictated note~for this date of service dictated separately.~Patient seen individually. Discussed the patient with Nursing staff reviewed the chart.~Reviewed interim history and current functioning. Reviewed vital signs,~Labs/ Radiology~and current medications noted below. Continue current treatment with the changes noted in the dictated addendum note Assessment: Vital Signs/I&O: Vital Signs Date Time Temp Pulse Resp B/P (MAP) Pulse Ox O2 Delivery O2 Flow Rate FiO2 04/23/19 05:39 97.0 62 18 143/77 (99) 94 04/21/19 05:23 Room Air I & O 04/22/19 04/22/19 04/23/19 15:00 23:00 07:00 Intake Total 720 ml 360 ml Output Total 400 ml Balance 720 ml 360 ml -400 ml Current Medications: I have reviewed the current psychotropics carefully including drug interactions. Risk benefit ratio favors no change other than as noted in my dictated progress note. Diagnosis: Problems: (1) Mental and behavioral problem in adult (2) Anxiety disorder (3) Dementia in Alzheimer's disease with delusions (4) Dementia in Alzheimer's disease with depression (5) Dementia, vascular, with delusions (6) Dementia, vascular, with depression (7) Impulse control disorder ZION JHA MD Apr 23, 2019 20:56
--- NOTE | 2019-04-30 09:09 | DS ---
DATE OF DISCHARGE: 04/23/2019 PSYCHIATRIC PROGRESS NOTE This note covers elements not covered in my initial note. REASON FOR ADMISSION: Please refer to the admission history for details. Briefly, the patient is an 84-year-old male referred to us from [facility] by his primary care physician on account of threatening to harm himself and another resident with scissors. He became annoyed, angry, states the others were bullying him and he did not know how to react. He appeared depressed, angry, irritable, had failed outpatient psychiatric interventions resulting in this referral. SIGNIFICANT FINDINGS AND CLINICAL COURSE: Following admission, the patient was seen daily individually by myself from a psychiatric standpoint, medical followup with Dr. Venegas. Shortly after admission, the patient was quite angry, irritable that he was on a unit with other demented patients, wanting to be discharged, angry that we will not let him out of the unit right away, even though it was late at night. Insight seemed limited, but ultimately he seemed to understand how this was not possible. I did discuss with nursing staff and social service staff and others to have the family involved make a decision on his disposition since he was just not wanting to be here. He denied active suicidal or homicidal ideation. [facility] Social Service staff arrange for discharge on 04/23/2019 prior to discharge. REVIEW OF SYSTEMS: Ambulation impaired. No CV, , pulmonary, eye system symptoms on review. MENTAL STATUS EXAM: Reasonably oriented. Speech coherent, abstraction fair, computation impaired, language function intact. Mood and affect are still depressed, anxious, but no suicidal or homicidal ideation. CONDITION AT DISCHARGE: Slightly improved, but he had not been here long enough to undergo full treatment. He was a self-sign and we agreed to transition him to a lower level of care. FINAL DIAGNOSES: Major depressive disorder, recurrent; anxiety disorder, unspecified; impulse control disorder, unspecified. Rest unchanged from admission. DISCHARGE MEDICATIONS: Please refer to the MRAD. DISCHARGE INSTRUCTIONS: Outpatient psychiatric and medical followup at the [facility]. MAN Adela JHA MD DR: MROALES/leslie JOB#: [id number] / [id number]
== END 2019-04-23 15:00 | disposition home or self-care (01) | DRG 885 ==
LOC: ER 18:17 → UNDOADMIN 19:30 → GEROPSY 19:30
PROVIDERS: ADMIT Psychiatry & Neurology Psychiatry; ATTEND Psychiatry & Neurology Psychiatry
DX: F33.9 Major depressive disorder, recurrent, unspecified (principal); G81.94 Hemiplegia, unspecified affecting left nondominant side; G93.40 Encephalopathy, unspecified; G30.9 Alzheimer's disease, unspecified; D72.829 Elevated white blood cell count, unspecified; E78.5 Hyperlipidemia, unspecified; F01.50 Vascular dementia, unspecified severity, without behavioral disturbance, psychotic disturbance, mood disturbance, and anxiety; F02.80 Dementia in other diseases classified elsewhere, unspecified severity, without behavioral disturbance, psychotic disturbance, mood disturbance, and anxiety; F41.9 Anxiety disorder, unspecified; F63.9 Impulse disorder, unspecified; G93.89 Other specified disorders of brain; I11.0 Hypertensive heart disease with heart failure; I25.10 Atherosclerotic heart disease of native coronary artery without angina pectoris; I48.91 Unspecified atrial fibrillation; I50.9 Heart failure, unspecified; I65.21 Occlusion and stenosis of right carotid artery; I73.9 Peripheral vascular disease, unspecified; M47.9 Spondylosis, unspecified; N40.0 Benign prostatic hyperplasia without lower urinary tract symptoms; Z86.73 Personal history of transient ischemic attack (TIA), and cerebral infarction without residual deficits; Z95.1 Presence of aortocoronary bypass graft; Z95.0 Presence of cardiac pacemaker; M19.90 Unspecified osteoarthritis, unspecified site
CPT/HCPCS: 36415; 70450; 71045; 72125; 80048; 80053; 80061; 80076; 81001; 82140; 82306; 82550; 82607; 83036; 83540; 83550; 83690; 83735; 83880; 84436; 84443; 84480; 84484; 85007; 85025; 85610; 85651; 85730; 86592; 87045; 87493; 93005; 94640; 96361; 96374; J2405; J7120; J7620; 99285-25